=== PATIENT | female | born 1985 | race African-American/Black ===

== ENCOUNTER 2023-05-26 17:07 | Emergency (ER) | payer SELFPAY ==
[~2023-05-26] VITALS: Ht 172.7 cm; Wt 58.1 kg
[2023-05-26] MEDS ORDERED: IBUPROFEN 800 MG TABLET PO ONE (18:00)
[2023-05-26] MEDS ORDERED: IBUP-1957 PO (18:21)
[2023-05-26] MEDS ORDERED: IBUPROFEN 800 MG TABLET ONE (18:33)
[2023-05-26 18:58] LABS: HEMATOCRIT 42.7 % (31.2-41.9); MEAN CORPUSCULAR VOLUME 80.9 fL (75.5-95.3); PLATELET COUNT (AUTO) 279 K/uL (179-408)
[2023-05-26 18:59] LABS: CARBON DIOXIDE 26 mmol/L (21-32); CHLORIDE 102 mmol/L (98-107); CREATININE 0.8 mg/dL (0.6-1.3); UREA NITROGEN, BLOOD 8 mg/dL (7-18)
[2023-05-26 19:12] LABS: ALANINE AMINOTRANSFERASE 16 U/L (14-59); ALKALINE PHOSPHATASE 77 U/L (50-136); ASPARTATE AMINOTRANSFERASE 35 U/L (15-37); BILIRUBIN,DIRECT 0.1 mg/dL (0.0-0.2); BILIRUBIN,TOTAL 0.2 mg/dL (0.2-1.0); TOTAL PROTEIN, SERUM 8.2 g/dL (6.4-8.2)
--- NOTE | 2023-05-26 19:15 | NUR ---
REPORT RECIEVED FROM PHONG JARRELL.
--- NOTE | 2023-05-26 19:20 | NUR ---
AT BEDSIDE FOR CONSULTATION.
--- NOTE | 2023-05-26 19:25 | NUR ---
Patient discharged to home in stable condition. Written and verbal after care instructions given. Patient verbalizes understanding of instructions. Stressed follow up or return to ER for worsening s/s.
[2023-05-26 19:32] VITALS: BP 131/76; TEMP 98; O2SAT 99
== END 2023-05-26 19:25 | disposition home or self-care (01) ==
LOC: ER 17:09
DX: M25.532 Pain in left wrist (principal); R51.9 Headache, unspecified; Z79.2 Long term (current) use of antibiotics
CPT/HCPCS: 36415; 70450; 73110; 84484; 85025; 85730; A4663